=== PATIENT | male | born 1990 | race Caucasian/White ===

== ENCOUNTER 2018-04-28 09:57 | Emergency (ER) | payer OTHER ==
--- NOTE | 2018-04-28 10:32 | ED ---
Psychiatric Complaint - HPI Summary HPI Summary: Pt is a 28 y/o male brought in by police who presents to the ED c/o SI. He was talking to his mother about his thoughts, who then called the landlord. Pts landlord then contacted the police, who found the pt on the sidewalk. He states hes been stressed out lately, and last night couldnt sleep because he was overthinking. Today he then snapped and started crying and flipped his table. 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 Pt had thoughts of jumping off a bridge or cutting himself, but no plan to do so. He states he does not want to . He has not had any psychological counseling while at [place]. He denies any drug use, and occasionally uses alcohol and smokes. - History Of Current Complaint Chief Complaint: EDMentalHealth Time Seen by Provider: 04/28/18 10:06 Hx Obtained From: Patient, EMS - Police Onset/Duration: Gradual Onset, Still Present Timing: Intermittent Episode Lasting Character: Depressed, Frustrated - Stressed Aggravating Factor(s): Recent Stress Alleviating Factor(s): Nothing Associated Signs And Symptoms: Positive: Sleep Disturbance Has Suicidal: Reports: Thoughts. Denies: With A Plan Has Homicidal: Denies: Thoughts - Allergies/Home Medications Allergies/Adverse Reactions: Allergies Allergy/AdvReac Type Severity Reaction Status Date / Time No Known Allergies Allergy Verified 04/28/18 10:48 Home Medications: Home Medications NK [No Home Medications Reported] 04/28/18 [History Confirmed 04/28/18] PMH/Surg Hx/FS Hx/Imm Hx Endocrine/Hematology History: Denies: Hx Diabetes Psychiatric History: Denies: Hx Depression Infectious Disease History: No Infectious Disease History: Denies: Traveled Outside the [place] in Last 30 Days - Family History Known Family History: Positive: Diabetes - Social History Alcohol Use: Rare Hx Substance Use: No Substance Use Type: Reports: None Hx Tobacco Use: Yes Smoking Status (MU): Current Some Day Smoker Review of Systems Negative: Fever Positive: Other - SI All Other Systems Reviewed And Are Negative: Yes Physical Exam - Summary Physical Exam Summary: Appearance: Well appearing, no pain distress Skin: warm, dry, reflects adequate perfusion Head/face: normal Eyes: EOMI, FLORA ENT: mucous membranes moist Neck: supple, non-tender Respiratory: CTA, breath sounds present Cardiovascular: RRR, pulses symmetrical Abdomen: non-tender, soft Bowel Sounds: present Musculoskeletal: normal, strength/ROM intact Neuro: normal, sensory motor intact, A&Ox3 Psych: flat affect, fleeting SI Triage Information Reviewed: Yes Vital Signs On Initial Exam: Initial Vitals Temp Pulse Resp BP Pulse Ox 97.9 F 65 16 136/77 100 04/28/18 10:01 04/28/18 10:01 04/28/18 10:01 04/28/18 10:01 04/28/18 10:01 Vital Signs Reviewed: Yes Diagnostics - Vital Signs Vital Signs Temp Pulse Resp BP Pulse Ox 04/28/18 10:01 97.9 F 65 16 136/77 100 - Laboratory Lab Statement: Any lab studies that have been ordered have been reviewed, and results considered in the medical decision making process. Re-Evaluation - Re-Evaluation First Eval Re-Evaluation Time: 10:20 Change: Unchanged Comment: Pt is medically cleared for a MHE. Course/Dx - Course Course Of Treatment: Patient was medically cleared by and received a mental health crisis evaluation. Following this he was cleared for discharge by the evaluators in the psychiatrist. He will be arranged outpatient follow-up. - Differential Dx/Clinical Impression Differential Diagnosis/HQI/PQRI: Positive: Anxiety, Bipolar Disorder, Depression , Homicidal Ideation, Homicidal Gesture, Suicidal Ideation, Suicidal Gesture Provider Diagnosis: Adjustment disorder, Depression Discharge - Sign-Out/Discharge Documenting (check all that apply): Patient Departure - Discharge - Discharge Plan Condition: Improved Disposition: HOME [facility] - - Billing Disposition and Condition Condition: IMPROVED Disposition: Home - Attestation Statements Document Initiated by Scribe: Yes Documenting Scribe: Anel Boggs Provider For Whom Scribe is Documenting (Include Credential): Jeff Hayward MD Scribe Attestation: Anel Mandujano scrheribertoed for Jeff Hayward MD on 04/28/18 at 1922. Scribe Documentation Reviewed: Yes Provider Attestation: The documentation as recorded by the Anel workman accurately reflects the service I personally performed and the decisions made by Jeff teran MD
[2018-04-28 11:28] VITALS: BP 112/77
[2018-04-28] MEDS ORDERED: Ibuprofen TAB* 400 MG PO ONE (11:50)
== END 2018-04-28 15:31 | disposition home or self-care (01) ==
LOC: ED 09:57
DX: F43.21 Adjustment disorder with depressed mood (principal); Z72.0 Tobacco use
CPT/HCPCS: 99284; A9270-GY

== ENCOUNTER 2018-05-26 20:53 | Inpatient (IN) | payer OTHER ==
[2018-05-26] MEDS ORDERED: Nicotine Inhaler* 10 MG AMP INH PRN (21:14)
[2018-05-26 21:36] LABS: ABS Basophils 0 10^3/ul (0-0.2); ABS Eosinophils 0.1 10^3/ul (0-0.6); ABS Lymphocytes 1.5 10^3/ul (1.0-4.8); ABS Monocytes 0.5 10^3/ul (0-0.8); ABS Nucleated RBC 0 10^3/ul; Eosinophil % 2.2 %; Hematocrit 43 % (42-52); Hemoglobin 14.4 g/dl (14.0-18.0); Lymphocyte % 29.1 %; Mean Corpuscular HGB Conc 33 g/dl (31-36); Mean Corpuscular Hemoglobin 27 pg (27-31); Mean Corpuscular Volume 81 fL (80-94); Mean Platelet Volume 6.8 fL (7.4-10.4); Nucleated Red Blood Cells % 0; Platelet Count 288 10^3/ul (150-450); Red Blood Count 5.32 10^6/ul (4.00-5.40); Red Cell Distribution Width 15 % (10.5-15); White Blood Count 5.2 10^3/ul (3.5-10.8)
[2018-05-26 21:37] LABS: Urine Appearance Clear; Urine Blood Negative (Negative); Urine Color Straw; Urine Ketones Negative (Negative); Urine Protein Negative (Negative); Urine Specific Gravity 1.006 (1.010-1.030); Urine Urobilinogen Negative (Negative)
[2018-05-26 21:53] LABS: EGFR Non-African American 98.7 (>60)
[2018-05-26] MEDS ORDERED: Mouth Piece, Nicotine* 1 EACH CARTRIDGE INH ONE (23:00)
--- NOTE | 2018-05-27 07:27 | PN ---
ED Flex Patient Progress Note Date of Service: 05/26/18 Subjective: This is a 28 year-old M who is pending admission to [facility] / transfer to another psychiatric facility / discharge to home / or being observed secondary to depression and SI. Pt. examined in room 21 around 0715. He is sleeping comfortably. Objective: Vitals: Most recent vital signs documented below. General NAD. Laboratory: Current laboratory results documented below. Assessment: Pending admission. Plan: Pending psychiatric or medical consultation to observe / transfer / admit / discharge will follow up daily . Vital Signs Temp Pulse Resp BP Pulse Ox 98.4 F 94 16 140/92 100 05/27/18 02:00 05/27/18 02:00 05/27/18 02:00 05/27/18 02:00 05/27/18 02:00 Lab Results - Entire Visit 05/26/18 05/26/18 05/26/18 21:27 21:27 21:19 WBC RBC Hgb Hct MCV MCH MCHC RDW Plt Count MPV Neut % (Auto) Lymph % (Auto) [place] % (Auto) Eos % (Auto) Baso % (Auto) Absolute Neuts (auto) Absolute Lymphs (auto) Absolute Monos (auto) Absolute Eos (auto) Absolute Basos (auto) Absolute Nucleated RBC Nucleated RBC % Sodium 137 Potassium 3.9 Chloride 103 Carbon Dioxide 29 Anion Gap 5 BUN 14 Creatinine 0.92 Est GFR ( Amer) 119.4 Est GFR (Non-Af Amer) 98.7 BUN/Creatinine Ratio 15.2 Glucose 93 Calcium 9.4 Total Bilirubin 0.50 AST 23 ALT 30 Alkaline Phosphatase 55 Total Protein 7.3 Albumin 4.4 Globulin 2.9 Albumin/Globulin Ratio 1.5 TSH 0.51 Urine Color Straw Urine Appearance Clear Urine pH 6.0 Ur Specific [place] 1.006 L Urine Protein Negative Urine Ketones Negative Urine Blood Negative Urine Nitrate Negative Urine Bilirubin Negative Urine Urobilinogen Negative Ur Leukocyte Esterase Negative Urine Glucose Negative Salicylates < 2.50 Urine Opiates Screen None detected Acetaminophen < 15 Ur Barbiturates Screen None detected Ur Phencyclidine Scrn None detected Ur Amphetamines Screen None detected U Benzodiazepines Scrn None detected Urine Cocaine Screen None detected U Cannabinoids Screen None detected Serum Alcohol < 10 05/26/18 21:19 WBC 5.2 RBC 5.32 Hgb 14.4 Hct 43 MCV 81 MCH 27 MCHC 33 RDW 15 Plt Count 288 MPV 6.8 L Neut % (Auto) 58.1 Lymph % (Auto) 29.1 [place] % (Auto) 10.1 Eos % (Auto) 2.2 Baso % (Auto) 0.5 Absolute Neuts (auto) 3.0 Absolute Lymphs (auto) 1.5 Absolute Monos (auto) 0.5 Absolute Eos (auto) 0.1 Absolute Basos (auto) 0 Absolute Nucleated RBC 0 Nucleated RBC % 0 Sodium Potassium Chloride Carbon Dioxide Anion Gap BUN Creatinine Est GFR ( Amer) Est GFR (Non-Af Amer) BUN/Creatinine Ratio Glucose Calcium Total Bilirubin AST ALT Alkaline Phosphatase Total Protein Albumin Globulin Albumin/Globulin Ratio TSH Urine Color Urine Appearance Urine pH Ur Specific [place] Urine Protein Urine Ketones Urine Blood Urine Nitrate Urine Bilirubin Urine Urobilinogen Ur Leukocyte Esterase Urine Glucose Salicylates Urine Opiates Screen Acetaminophen Ur Barbiturates Screen Ur Phencyclidine Scrn Ur Amphetamines Screen U Benzodiazepines Scrn Urine Cocaine Screen U Cannabinoids Screen Serum Alcohol
[2018-05-27] MEDS ORDERED: Al Hydrox/Mg Hydrox/Simet LIQ* 30 ML UDC PO PRN (12:39)
[2018-05-27] MEDS ORDERED: Acetaminophen TAB* 325 MG PO PRN (12:39)
[2018-05-27] MEDS ORDERED: hydrOXYzine HCL TAB* 50 MG PO PRN (12:40)
--- NOTE | 2018-05-27 12:50 | PN ---
ED Flex Patient Progress Note Date of Service: 05/27/18 Subjective: 28 y.o. single, white [employer] student arrives with suicidal ideation. The patient cannot contact for safety and is requesting admission to the Hospital. Objective: young white male in scrubs; depressed with constricted affect; positive for SI; denies HI Assessment: Unspecified Depressive DO Plan: Admit to [facility] on voluntary (9.13) legal status. Vital Signs Temp Pulse Resp BP Pulse Ox 98.4 F 94 16 140/92 100 05/27/18 02:00 05/27/18 02:00 05/27/18 02:00 05/27/18 02:00 05/27/18 02:00 Lab Results - Entire Visit 05/26/18 05/26/18 05/26/18 21:27 21:27 21:19 WBC RBC Hgb Hct MCV MCH MCHC RDW Plt Count MPV Neut % (Auto) Lymph % (Auto) [place] % (Auto) Eos % (Auto) Baso % (Auto) Absolute Neuts (auto) Absolute Lymphs (auto) Absolute Monos (auto) Absolute Eos (auto) Absolute Basos (auto) Absolute Nucleated RBC Nucleated RBC % Sodium 137 Potassium 3.9 Chloride 103 Carbon Dioxide 29 Anion Gap 5 BUN 14 Creatinine 0.92 Est GFR ( Amer) 119.4 Est GFR (Non-Af Amer) 98.7 BUN/Creatinine Ratio 15.2 Glucose 93 Calcium 9.4 Total Bilirubin 0.50 AST 23 ALT 30 Alkaline Phosphatase 55 Total Protein 7.3 Albumin 4.4 Globulin 2.9 Albumin/Globulin Ratio 1.5 TSH 0.51 Urine Color Straw Urine Appearance Clear Urine pH 6.0 Ur Specific [place] 1.006 L Urine Protein Negative Urine Ketones Negative Urine Blood Negative Urine Nitrate Negative Urine Bilirubin Negative Urine Urobilinogen Negative Ur Leukocyte Esterase Negative Urine Glucose Negative Salicylates < 2.50 Urine Opiates Screen None detected Acetaminophen < 15 Ur Barbiturates Screen None detected Ur Phencyclidine Scrn None detected Ur Amphetamines Screen None detected U Benzodiazepines Scrn None detected Urine Cocaine Screen None detected U Cannabinoids Screen None detected Serum Alcohol < 10 05/26/18 21:19 WBC 5.2 RBC 5.32 Hgb 14.4 Hct 43 MCV 81 MCH 27 MCHC 33 RDW 15 Plt Count 288 MPV 6.8 L Neut % (Auto) 58.1 Lymph % (Auto) 29.1 [place] % (Auto) 10.1 Eos % (Auto) 2.2 Baso % (Auto) 0.5 Absolute Neuts (auto) 3.0 Absolute Lymphs (auto) 1.5 Absolute Monos (auto) 0.5 Absolute Eos (auto) 0.1 Absolute Basos (auto) 0 Absolute Nucleated RBC 0 Nucleated RBC % 0 Sodium Potassium Chloride Carbon Dioxide Anion Gap BUN Creatinine Est GFR ( Amer) Est GFR (Non-Af Amer) BUN/Creatinine Ratio Glucose Calcium Total Bilirubin AST ALT Alkaline Phosphatase Total Protein Albumin Globulin Albumin/Globulin Ratio TSH Urine Color Urine Appearance Urine pH Ur Specific [place] Urine Protein Urine Ketones Urine Blood Urine Nitrate Urine Bilirubin Urine Urobilinogen Ur Leukocyte Esterase Urine Glucose Salicylates Urine Opiates Screen Acetaminophen Ur Barbiturates Screen Ur Phencyclidine Scrn Ur Amphetamines Screen U Benzodiazepines Scrn Urine Cocaine Screen U Cannabinoids Screen Serum Alcohol
--- NOTE | 2018-05-27 13:25 | ED ---
Progress - Progress Note Progress Note: This pt was signed out by Dr. Miller, pending disposition, awaiting MHE. Pt had a mental health evaluation and his case was reviewed by Dr. Traore, psychologist. Dr. Traore will admit the pt to [facility] with dx of unspecified depression. Course/Dx - Diagnoses Provider Diagnoses: Depression Discharge - Sign-Out/Discharge Documenting (check all that apply): Patient Departure - Admit to [facility], Receiving Sign-Out Receiving patient FROM: Lukas Miller All imaging exams completed and their final reports reviewed: No - Discharge Plan Condition: Stable Disposition: [facility]ATRIC FACILITY[facility] - Attestation Statements Document Initiated by Scribe: Yes Documenting Scribe: Alaina Arce Provider For Whom Scribe is Documenting (Include Credential): Jose Greene MD Scribe Attestation: Alaina Mandujano, scribed for Jose Greene MD on 05/28/18 at 1348. Status of Scribe Document: Ready
--- NOTE | 2018-05-27 14:58 | ED ---
Medical Screening - HPI Summary HPI Summary: Patient brought to [facility] ER by PD after friend called the police regarding certain statements the patient made involving thoughts of SI. Patient admits to thoughts of SI 1 month with a plan to slit his wrists. Denies history of suicide attempt or history of suicide thoughts, or former diagnoses involving mental health. Denies HI. Denies any other symptoms, pain or injury. Denies recent use of EtOH or recreational drugs. Denies prior medical history. - History of Current Complaint Chief Complaint: EDMentalHealth Stated Complaint: 941 Time Seen by Provider: 05/26/18 21:07 Onset/Duration: Started Weeks Ago Severity: moderate Associated Signs and Symptoms: Negative PMH/Surg Hx/FS Hx/Imm Hx Endocrine/Hematology History: Denies: Hx Anticoagulant Therapy, Hx Diabetes Cardiovascular History: Denies: Hx Cardiac Arrest History: Denies: Hx Dialysis Psychiatric History: Denies: Hx Eating Disorder, Hx Depression, Hx of Violent Episodes Against Others Infectious Disease History: No Infectious Disease History: Denies: Traveled Outside the [place] in Last 30 Days - Family History Known Family History: Positive: Diabetes Negative: Other - Depression - Social History Occupation: Student Alcohol Use: Rare Hx Substance Use: No Substance Use Type: Reports: None Hx Tobacco Use: Yes Smoking Status (MU): Current Some Day Smoker Review of Systems Constitutional: Negative Eyes: Negative ENT: Negative Cardiovascular: Negative Respiratory: Negative Gastrointestinal: Negative Genitourinary: Negative Musculoskeletal: Negative Skin: Negative Neurological: Negative Psychological: Normal All Other Systems Reviewed And Are Negative: Yes Physical Exam Triage Information Reviewed: Yes Vital Signs On Initial Exam: Initial Vitals Temp Pulse Resp BP Pulse Ox 97.7 F 54 12 129/80 100 05/26/18 20:58 05/26/18 20:58 05/26/18 20:58 05/26/18 20:58 05/26/18 20:58 Vital Signs Reviewed: Yes Appearance: Positive: Well-Appearing Skin: Positive: Warm Head/Face: Positive: Normal Head/Face Inspection Eyes: Positive: Normal Neck: Positive: Supple Respiratory/Lung Sounds: Positive: Clear to Auscultation Cardiovascular: Positive: Normal Abdomen Description: Positive: Nontender Musculoskeletal: Positive: Normal Neurological: Positive: Normal Psychiatric: Positive: Depressed AVPU Assessment: Alert - Candy Coma Scale Best Eye Response: 4 - Spontaneous Best Motor Response: 6 - Obeys Commands Best Verbal Response: 5 - Oriented Coma Scale Total: 15 Diagnostics - Vital Signs Vital Signs Temp Pulse Resp BP Pulse Ox 05/27/18 02:00 98.4 F 94 16 140/92 100 05/26/18 20:58 97.7 F 54 12 129/80 100 - Laboratory Lab Results: Lab Results 05/26/18 05/26/18 05/26/18 Range/Units 21:19 21:19 21:27 WBC 5.2 (3.5-10.8) 10^3/ul RBC 5.32 (4.00-5.40) 10^6/ul Hgb 14.4 (14.0-18.0) g/dl Hct 43 (42-52) % MCV 81 (80-94) fL MCH 27 (27-31) pg MCHC 33 (31-36) g/dl RDW 15 (10.5-15) % Plt Count 288 (150-450) 10^3/ul MPV 6.8 L (7.4-10.4) fL Neut % (Auto) 58.1 % Lymph % (Auto) 29.1 % [place] % (Auto) 10.1 % Eos % (Auto) 2.2 % Baso % (Auto) 0.5 % Absolute Neuts (auto) 3.0 (1.5-7.7) 10^3/ul Absolute Lymphs (auto) 1.5 (1.0-4.8) 10^3/ul Absolute Monos (auto) 0.5 (0-0.8) 10^3/ul Absolute Eos (auto) 0.1 (0-0.6) 10^3/ul Absolute Basos (auto) 0 (0-0.2) 10^3/ul Absolute Nucleated RBC 0 10^3/ul Nucleated RBC % 0 Sodium 137 (135-145) mmol/L Potassium 3.9 (3.5-5.0) mmol/L Chloride 103 (101-111) mmol/L Carbon Dioxide 29 (22-32) mmol/L Anion Gap 5 (2-11) mmol/L BUN 14 (6-24) mg/dL Creatinine 0.92 (0.67-1.17) mg/dL Est GFR ( Amer) 119.4 (>60) Est GFR (Non-Af Amer) 98.7 (>60) BUN/Creatinine Ratio 15.2 (8-20) Glucose 93 (70-100) mg/dL Calcium 9.4 (8.6-10.3) mg/dL Total Bilirubin 0.50 (0.2-1.0) mg/dL AST 23 (13-39) U/L ALT 30 (7-52) U/L Alkaline Phosphatase 55 (34-104) U/L Total Protein 7.3 (6.4-8.9) g/dL Albumin 4.4 (3.2-5.2) g/dL Globulin 2.9 (2-4) g/dL Albumin/Globulin Ratio 1.5 (1-3) TSH 0.51 (0.34-5.60) mcIU/mL Urine Color Straw Urine Appearance Clear Urine pH 6.0 (5-9) Ur Specific [place] 1.006 L (1.010-1.030) Urine Protein Negative (Negative) Urine Ketones Negative (Negative) Urine Blood Negative (Negative) Urine Nitrate Negative (Negative) Urine Bilirubin Negative (Negative) Urine Urobilinogen Negative (Negative) Ur Leukocyte Esterase Negative (Negative) Urine Glucose Negative (Negative) Salicylates < 2.50 (<30) mg/dL Urine Opiates Screen (None Detect) Acetaminophen < 15 mcg/mL Ur Barbiturates Screen (None Detect) Ur Phencyclidine Scrn (None Detect) Ur Amphetamines Screen (None Detect) U Benzodiazepines Scrn (None Detect) Urine Cocaine Screen (None Detect) U Cannabinoids Screen (None Detect) Serum Alcohol < 10 (<10) mg/dL 05/26/18 Range/Units 21:27 WBC (3.5-10.8) 10^3/ul RBC (4.00-5.40) 10^6/ul Hgb (14.0-18.0) g/dl Hct (42-52) % MCV (80-94) fL MCH (27-31) pg MCHC (31-36) g/dl RDW (10.5-15) % Plt Count (150-450) 10^3/ul MPV (7.4-10.4) fL Neut % (Auto) % Lymph % (Auto) % [place] % (Auto) % Eos % (Auto) % Baso % (Auto) % Absolute Neuts (auto) (1.5-7.7) 10^3/ul Absolute Lymphs (auto) (1.0-4.8) 10^3/ul Absolute Monos (auto) (0-0.8) 10^3/ul Absolute Eos (auto) (0-0.6) 10^3/ul Absolute Basos (auto) (0-0.2) 10^3/ul Absolute Nucleated RBC 10^3/ul Nucleated RBC % Sodium (135-145) mmol/L Potassium (3.5-5.0) mmol/L Chloride (101-111) mmol/L Carbon Dioxide (22-32) mmol/L Anion Gap (2-11) mmol/L BUN (6-24) mg/dL Creatinine (0.67-1.17) mg/dL Est GFR ( Amer) (>60) Est GFR (Non-Af Amer) (>60) BUN/Creatinine Ratio (8-20) Glucose (70-100) mg/dL Calcium (8.6-10.3) mg/dL Total Bilirubin (0.2-1.0) mg/dL AST (13-39) U/L ALT (7-52) U/L Alkaline Phosphatase (34-104) U/L Total Protein (6.4-8.9) g/dL Albumin (3.2-5.2) g/dL Globulin (2-4) g/dL Albumin/Globulin Ratio (1-3) TSH (0.34-5.60) mcIU/mL Urine Color Urine Appearance Urine pH (5-9) Ur Specific [place] (1.010-1.030) Urine Protein (Negative) Urine Ketones (Negative) Urine Blood (Negative) Urine Nitrate (Negative) Urine Bilirubin (Negative) Urine Urobilinogen (Negative) Ur Leukocyte Esterase (Negative) Urine Glucose (Negative) Salicylates (<30) mg/dL Urine Opiates Screen None detected (None Detect) Acetaminophen mcg/mL Ur Barbiturates Screen None detected (None Detect) Ur Phencyclidine Scrn None detected (None Detect) Ur Amphetamines Screen None detected (None Detect) U Benzodiazepines Scrn None detected (None Detect) Urine Cocaine Screen None detected (None Detect) U Cannabinoids Screen None detected (None Detect) Serum Alcohol (<10) mg/dL Result Diagrams: 05/26/18 21:19 12/02/18 21:19 Lab Statement: Any lab studies that have been ordered have been reviewed, and results considered in the medical decision making process. Course/Dx - Course Course Of Treatment: Patient brought to [facility] ER by PD after friend called the police regarding certain statements the patient made involving thoughts of SI. Patient admits to thoughts of SI 1 month with a plan to slit his wrists. Denies history of suicide attempt or history of suicide thoughts, or former diagnoses involving mental health. Denies HI. Denies any other symptoms, pain or injury. Denies recent use of EtOH or recreational drugs. Denies prior medical history. Patient evaluated by mental health and will be admitted to [facility] psychiatric unit for depression - Diagnoses Provider Diagnoses: Depression Discharge - Sign-Out/Discharge Documenting (check all that apply): Patient Departure - Discharge Plan Condition: Stable [facility] [place] Referrals: No Primary Care Phys,NOPCP [Primary Care Provider] - - Billing Disposition and Condition Condition: STABLE Disposition: Psychiatric Facility [facility]
[2018-05-28 08:00] VITALS: BP 136/51
--- NOTE | 2018-05-28 18:43 | HP ---
HISTORY AND PHYSICAL: DATE OF ADMISSION: 05/27/18 PROVIDER: Amaya Be NP, Psychiatry. SUPERVISING PHYSICIAN: Manjinder Traore MD * (DICTATED BY AMAYA BE NP) JUSTIFICATION FOR ADMISSION: The patient is in need of 24-hour supervision and care secondary to suicidal ideation. CHIEF COMPLAINT: "My parents are really supportive and I don't want to let them down." HISTORY OF PRESENT ILLNESS: The patient is a 28-year-old single white male who comes from [facility] [place]. He has a history of one visit to the emergency department for suicidal ideation from which he was discharged with a plan to go to [facility]. He was brought in by [employer] after a friend reported that Suresh was feeling suicidal and had prior to that date made superficial cuts on his wrist. Suresh is a very polite young man who is doing well in school. It is his first year at [employer] in the [employer]. He states that his stress was increased because of the girl who rejected him. He states she treats him differently than the other students. He is "not having luck with women at [employer]." He is suffering with loneliness and school stress, which is problematic for him. However, a fraternity [place] to [place] which indicates that he is social and he is popular enough to get a specific invitation. Also, he wants to be in an exhibition to show off his work. He is sleeping a lot. He did make a kind of attempt 3 days ago where he used blade that they use in [employer] school to cut his wrist, but he did not like it because it hurt. So, he did not do anything other than a superficial scratch. He said he could not go through with it. He feels as though in his heart, he was feeling hope. He currently has no plan, the wrist cutting was too painful so that is out of the question and he has no other ideas. He is sleeping a lot. His interest, however, is the same. He feels guilt for having inconvenient to his friends. His energy remains the same. He is concentrating well. His appetite is the same and suicidal ideation appears to have dissipated. PAST PSYCHIATRIC HISTORY: He has never been treated for psychiatric reasons. He was in the emergency department 1 month and 1 day ago. He was discharged with advice to go to seek help at [facility]. He has never taken any psychiatric meds before and is not taking any now. He has no history of violence. He does not have access to fire arms. PAST MEDICAL HISTORY: He had a deviated septum surgically repaired. He has no known drug allergies. He states he gets headaches on occasion perhaps due to stress, dehydration or lack of sleep. TRAUMA HISTORY: Denied. SUBSTANCE ABUSE HISTORY: Includes past trial of marijuana, which he did not enjoy and occasional, meaning once a week, use of 5 to 6 drinks. Traumatic brain injury is denied. FAMILY HISTORY: Denied with the exception of stating that dad is a little anxious. SOCIAL HISTORY: He lives in [place], [place] with both of his parents. He is currently enrolled in [employer] [facility], of which he is very proud. He does not have a girlfriend although he would like one. He is not employed. He has never been in the . He has no legal problems. REVIEW OF SYSTEMS: The patient reports feeling alert. Denies shortness of breath, heat or cold intolerance, chest pain or abdominal pain. He denies neurological symptoms and denies fevers or changes in weight. PHYSICAL EXAMINATION VITAL SIGNS: On 05/27/18 at 1655, temperature 98.1, pulse 66, respirations 16, O2 sat on room air 100%, blood pressure 118/75. For further exam data, please see the emergency department records which revealed a normal exam. LABORATORY DATA: Very few unusual findings. MPV is low at 6.8. Urine specific gravity is low at 1.006. Toxicology screen is negative. Hemoglobin A1c is 5.4. Triglycerides 78, cholesterol 166, LDL cholesterol 88, HDL cholesterol 62.2. TSH is 0.51. MENTAL STATUS EXAM: This is a well-built man who is calm and cooperative and extraordinarily polite. His speech is of normal rate and tone. His volume is a little soft. It is not pressured. He is dysthymic. He has a full range of affect. His thought processes are normal. His thought content is free of delusions. He is not homicidal. He states he is no longer suicidal. No hallucinations reported. His insight is fair. His judgment is good. He is alert and oriented x3. DIAGNOSES: Macy I: Depressive disorder, not otherwise specified. Macy II: Deferred. Macy III: None. IMPRESSION: This is a 28-year-old single white male who goes to [employer] at [facility]. He comes to the hospital via [employer] after he told his friend that he was thinking of ending his life or having thoughts of doing so. Once he is here, he is eager to leave and relates that his suicidal ideation would be too disappointing to him and his family. PLAN: The patient is admitted to the adult behavioral health unit and placed on q.15-minute checks for his own safety. He is encouraged to participate in supportive milieu, individual, and group therapies. Estimated length of stay is 5 to 7 days. We will not be adding medications as this is not of interest to him at this time. Discharge planning will include outpatient providers and will take place on 05/28/18. AMAYA BE NP [id number]/[facility] #: [id number] CHUCK
--- NOTE | 2018-05-29 13:31 | DS ---
CC: [facility] * DATE OF ADMISSION: 05/27/2018. DATE OF DISCHARGE: 05/28/2018. PROVIDER: Amaya Be NP in Psychiatry. SUPERVISING PHYSICIAN: Dr. Manjinder Traore * (dictated by Amaya Be NP). DIAGNOSES: AXIS I: Depressive disorder, not otherwise specified. CONDITION AT THE TIME OF DISCHARGE: Improved. Psychiatrically cleared. Stable. Participated in a few groups and was social with some peers. His mother is agreeable to discharge as is Suresh. He has done well here psychiatrically. No new meds were started. He will be attending [facility] therapy there. MENTAL STATUS EXAM: At the time of discharge, Suresh is calm, cooperative and makes good eye contact. He is alert and oriented times three. His grooming is good. His speech pace is normal. His thought processes are logical. He is not psychotic or delusional. He denies AH, VH, SI, and HI. His insight is fair. His judgment is fair. He is willing to follow-up and he is urged to see a therapist. DISCHARGE INSTRUCTIONS TO THE PATIENT: A. Medications: None. B. Diet: Regular. C. Activities: As tolerated. Suresh is a nonsmoker. There are no studies pending at the time of discharge. D. Follow-up care: He has an appointment with Jojo Burt LMSW, at [facility] for postadmission follow-up. She will help establish Suresh with an ongoing counselor. That appointment is on May 29 at 3:00 p.m. E. Substance abuse follow-up is not indicated. HOSPITAL COURSE - PART A: Chief complaint: "My parents are really supportive and I don't want to let them down." The patient is a 28-year-old, single, white male who comes from [facility] [email or web address]. He has a history of one visit to the emergency department for suicidal ideation from which he was discharged with a plan to go to [facility]. He was brought in by [facility] this time after a friend reported that Suresh was suicidal and had prior to that date made superficial cuts on his wrist. Suresh is a very polite young man who is doing well in school. It is his first year at [employer] in the [employer]. He states that his stress was increased because of a girl who rejected him. He states she treats him differently than the other students. He is "not having any luck with women at [employer]." He is suffering with loneliness and school stress which is problematic for him. However, a fraternity invited him to [place] which indicates that he is social and he is popular enough to get a specific invitation. Also, he wants to be in an exhibition to show off his work. He is sleeping a lot. He did make a kind of attempt three days ago when he used a blade that they use in [employer] to cut his wrist, but he did not like it because it hurt, so he did not do anything other than a superficial scratch. He said he could not go through with it. He feels as though in his heart he was feeling hope. He currently has no plan. The wrist cutting was too painful, so that is out of the question and he has no other ideas. He is sleeping a lot. His interest, however, is the same. He feels guilt for having inconvenienced his friends. His energy remains the same. He is concentrating well. His appetite is the same and his suicidal ideation appears to have dissipated. HOSPITAL COURSE - PART B: Psychiatric treated was rendered. Suresh was admitted to the Adult Behavioral Unit and placed on q.15 minute checks for safety. He did well on the unit even though he went to very few groups though. He interacted with peers well. He did not start a new medication. No medications were discontinued as he did not take any medications from home. I did speak with his mother, her phone number is . She indicated that she was in support of him leaving because she was worried about his classes and continuing with school. He also apparently indicated to her that he was feeling fine, that he did not need to be in the hospital. No consults were entered. Suresh did stay overnight here and was very certain that this was not the appropriate setting for him to get well in. He did agree, after some discussion, that going to outpatient therapy would be helpful to him in building coping strategies and learning other and new methods to manage his stress and anxiety. AMAYA BE, LORENZO [id number]/[facility] #: [id number] CHUCK
== END 2018-05-28 17:00 | disposition home or self-care (01) | DRG 881 ==
LOC: ED 20:53 → BSU 05-27 18:12
PROVIDERS: ADMIT Psychiatry & Neurology Psychiatry; ATTEND Psychiatry & Neurology Psychiatry
DX: F32.9 Major depressive disorder, single episode, unspecified (principal); R45.851 Suicidal ideations
CPT/HCPCS: 36415; 80053; 80061; 80307; 80320; 80329; 81003; 83036; 84443; 85025; 99284; G0480

== ENCOUNTER 2018-09-06 19:13 | Emergency (ER) | payer OTHER ==
[2018-09-06 19:53] VITALS: BP 139/82
--- NOTE | 2018-09-06 20:03 | UC ---
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 ++ pain, bruising. No reported injury elsewhere. Brought to [facility] by friend. Pt is R Handed, java j2ee architect. Tet utd per pt. - History Of Current Complaint Chief Complaint: UCLaceration Stated Complaint: HAND LACERATION Time Seen by Provider: 09/06/18 20:02 Hx Obtained From: Patient Pain Intensity: 7 - Allergies/Home Medications Allergies/Adverse Reactions: Allergies Allergy/AdvReac Type Severity Reaction Status Date / Time No Known Allergies Allergy Verified 09/06/18 19:49 PMH/Surg Hx/FS Hx/Imm Hx Previously Healthy: Yes Other History Of: Negative For: Anticoagulant Therapy - Surgical History Surgical History: None - Family History Known Family History: Positive: Diabetes Negative: Other - Depression - Social History Alcohol Use: Occasionally Substance Use Type: None Smoking Status (MU): Current Some Day Smoker Type: Cigarettes Household Exposure Type: Cigarettes - Immunization History Most Recent Influenza Vaccination: this year 2018. Most Recent Tetanus Shot: unknown Most Recent Pneumonia Vaccination: unknown. Review of Systems All Other Systems Reviewed And Are Negative: Yes Constitutional: Positive: Other - see hpi Skin: Positive: Other - see hpi Eyes: Positive: Other - see hpi ENT: Positive: Other - see hpi Respiratory: Positive: Other - see hpi Cardiovascular: Positive: Other - see hpi Gastrointestinal: Positive: Other - see hpi Motor: Positive: Other - see hpi Neurovascular: Positive: Other - see hpi Musculoskeletal: Positive: Other: - see hpi Neurological: Positive: Other - see hpi Psychological: Positive: Negative Is Patient Immunocompromised?: No Physical Exam Triage Information Reviewed: Yes Appearance: Well-Nourished, Other: - pale, eating crackers Vital Signs: Initial Vital Signs Temp 97.1 F 09/06/18 19:47 Pulse 63 09/06/18 19:47 Resp 18 09/06/18 19:47 BP 139/82 09/06/18 19:47 Pulse Ox 97 09/06/18 19:47 Eye Exam: Normal ENT Exam: Normal Neck exam: Normal Neck: Positive: Supple, Nontender Respiratory Exam: Normal - RR regular. No tachypnea, no dyspnea. Cardiovascular Exam: Normal - HR normal at exam. Pale prior to exam. better now. wrist pulses good. Abdominal Exam: Normal Musculoskeletal Exam: Other - R thumb ++ eccymosis, + subungual hematoma prox thumbnail. R distal thumb pad with 3cm lac x approx 0.5cm. Bleeding controlled. Distal sens + Light touch. Painful to bend thumb. No prox injury noted or reported. Neurological Exam: Normal - grossly nonfocal Psychological Exam: Normal - conversing easily and appropriately Skin Exam: Normal - see [facility] re lac details Laceration Repair - Laceration Repair 1 Description: Linear Laceration Size After Repair: Length (cm) - 3cm, Width (mm) - 0.5cm, Depth (mm) - 0.5cm Modified For Repair: No Type Injection: Digital Anesthesia Used: 2.0% Lido Cleansing Completed Via Routine Prep: Yes Closure Material: Sutures Closure Method: Single Layer Suture Of: Skin Suture Type: Nylon Laceration Course/Dx - Course/Dx Course Of Treatment: Thumb xray - reviewed with pt and paint maker. + fx. D/w Dr. Vargas - ok to suture and f/u on Sunday. Subungual hematoma ok to leave intact. Reviewed coa / tx plan with pt and paint maker. Reviewed the importance of seeking medical attention for any worse or new problems. Reviewed wound care with pt. Suture removal per Orthopedics (about 10 days). There is dark discoloration at the wound margin, frandy distal margin. Reviewed with pt that this likely will scab and come off. There will be a scar. There could possibly be dysesthesia, short and / or superannuation clerk. It is imperative that he follow up with orthopedics on Sunday morning. Questions as posed answered to the best of my ability. - Diagnosis Provider Diagnosis: Laceration of thumb, Subungual hematoma, Thumb fracture Discharge - Sign-Out/Discharge Documenting (check all that apply): Patient Departure All imaging exams completed and their final reports reviewed: No - Discharge Plan Condition: Stable Disposition: HOME Prescriptions: Cephalexin CAP* [Keflex 500 CAP*] 500 mg PO TID #30 cap Ibuprofen TAB* [Motrin TAB* 600 MG] 600 mg PO Q8H PRN #30 tab PRN Reason: Pain Patient Education Materials: Laceration (ED), Thumb Fracture (ED) Forms: *School Release Referrals: No Primary Care Phys,NOPCP [Primary Care Provider] - Cortez Granados MD [Medical Doctor] - - Billing Disposition and Condition Condition: STABLE Disposition: Home
[2018-09-06] MEDS ORDERED: Lidocaine 2% PF * 5 ML VIAL IV ONE (20:22)
[2018-09-06] MEDS ORDERED: cefTRIAXone VIAL(*) 1,000 MG VIAL IM ONE (20:54)
[2018-09-06] MEDS ORDERED: Lidocaine 1% INJ* 10 MG/ML 30 ML SDV INJ ONE (21:22)
[2018-09-06] MEDS ORDERED: Lidocaine 1%* 5 ML VIAL ONE (21:26)
[2018-09-06] MEDS ORDERED: Ibuprofen TAB* 600 MG PO ONE ×2 (22:02→22:09)
--- NOTE | 2018-09-08 00:16 | UC ---
- Progress Note Progress Note: RADIOLOGY REPORT REVIEWED AND CONFIRMS Minimally displaced distal phalanx fracture of the right thumb with no intra-articular extension. NO CHANGE IN MGMT. F/U ORTHO ADVISED. Course/Dx - Diagnoses Provider Diagnoses: Laceration of thumb, Subungual hematoma, Thumb fracture Discharge - Sign-Out/Discharge Documenting (check all that apply): Post-Discharge Follow Up All imaging exams completed and their final reports reviewed: Yes - Discharge Plan Condition: Stable Disposition: HOME Prescriptions: Cephalexin CAP* [Keflex 500 CAP*] 500 mg PO TID #30 cap Ibuprofen TAB* [Motrin TAB* 600 MG] 600 mg PO Q8H PRN #30 tab PRN Reason: Pain Patient Education Materials: Laceration (ED), Thumb Fracture (ED) Forms: *School Release Referrals: Cortez Granados MD [Medical Doctor] - No Primary Care Phys,NOPCP [Primary Care Provider] - - Billing Disposition and Condition Condition: STABLE Disposition: Home
== END 2018-09-06 22:15 | disposition home or self-care (01) ==
LOC: UCEAST 19:13
DX: S60.111A Contusion of right thumb with damage to nail, initial encounter (principal); S62.501A Fracture of unspecified phalanx of right thumb, initial encounter for closed fracture; S61.011A Laceration without foreign body of right thumb without damage to nail, initial encounter; X58.XXXA Exposure to other specified factors, initial encounter; Y92.9 Unspecified place or not applicable; Z72.0 Tobacco use
CPT/HCPCS: 12002; 12032; 96372; 99212; A9270-GY; G0463; J0696